=== PATIENT | male | born 1980 | race Caucasian/White ===

== ENCOUNTER → 2016-08-07 | Outpatient (CLI) | payer BC ==
[~2016-08-07] VITALS: Ht 180.3 cm; Wt 158.2 kg
[~2016-08-07] MED LIST: ANDROGEL150 GM TD; DAILY VALUE1 EACH PO; LO-DOSE ASPIRIN81 M2 PO; VITAMIN D31000 UNIT PO; ZESTRIL10 MG PO; ZESTRIL5 MG PO; ZOCOR10 MG PO; ZOCOR5 MG PO
== END | disposition home or self-care (01) ==
LOC: AMB 13:11
PROC: 0DJ08ZZ Inspection of Upper Intestinal Tract, Via Natural or Artificial Opening Endoscopic (ICD-10-PCS; principal; 2016-08-07)
DX: K21.9 Gastro-esophageal reflux disease without esophagitis (principal); K29.70 Gastritis, unspecified, without bleeding; K25.9 Gastric ulcer, unspecified as acute or chronic, without hemorrhage or perforation; I10 Essential (primary) hypertension; E66.01 Morbid (severe) obesity due to excess calories; Z68.43 Body mass index [BMI] 50.0-59.9, adult
CPT/HCPCS: J2250

== ENCOUNTER → 2016-09-07 | Outpatient (CLI) | payer BC | END | disposition home or self-care (01) | LOC: CDC 08:12 | DX: Z01.818 Encounter for other preprocedural examination (principal); E66.01 Morbid (severe) obesity due to excess calories | CPT/HCPCS: 93000 ==